=== PATIENT | male | born 1940 | race Caucasian/White ===

== ENCOUNTER 2019-04-18 16:12 | Observation (INO) | payer OTHER, MEDICARE ==
[~2019-04-18] VITALS: Ht 162.6 cm; Wt 65.0 kg
[2019-04-18 16:40] VITALS: BP 95/56
[2019-04-18 18:13] LABS: HEMATOCRIT 33.6 % (39.0-50.0); HEMOGLOBIN 11.3 g/dl (14.0-18.0); IMMATURE GRANULOCYTES 0.3 % (0.0-5.0); MEAN CELL VOLUME 95.5 fL CALC (80.0-100.0); MEAN CORPUSCULAR HGB 32.1 pG CALC (26.0-32.0); MEAN CORPUSCULAR HGB CONC 33.6 g/L CALC (32.0-36.0); NEUT# 5.13 thou/uL (1.82-7.42); RED BLOOD COUNT 3.52 mill/uL (4.70-6.10); RED CELL DISTRI WIDTH 13.7 % (11.5-15.5)
[2019-04-18 18:33] LABS: POTASSIUM 3.4 mmol/l (3.5-5.1)
[2019-04-18 18:36] LABS: CREATININE 2.3 mg/dL (0.7-1.3)
[2019-04-18 19:50] VITALS: BP 129/65
[2019-04-18 20:44] LABS: URINE BILIRUBIN - DIPSTICK NEGATIVE (NEGATIVE); URINE BLOOD DIPSTICK NEGATIVE (NEGATIVE); URINE COLOR YELLOW; URINE GLUCOSE - DIPSTICK NEGATIVE (NEGATIVE); URINE KETONE TRACE mg/dL (NEGATIVE); URINE LEUK ESTERASE NEGATIVE (Negative); URINE NITRITE - DIPSTICK NEGATIVE (Negative); URINE PH 5.5 (4.5-8.0); URINE PROTEIN - DIPSTICK TRACE mg/dL (NEG-TRACE); URINE SPECIFIC GRAVITY 1.025; URINE UROBILINOGEN - DIPSTICK 0.2 E.U./dL (0.2)
[2019-04-18 20:46] LABS: URINE CLARITY CLEAR
[2019-04-18] MEDS ORDERED: IPRATROPIU0.5 MG/3 M IN (21:08)
[2019-04-18] MEDS ORDERED: PROAIR HFA IN (21:10)
[2019-04-18] MEDS ORDERED: ASPIRIN81 MG PO (21:11)
[2019-04-18] MEDS ORDERED: LIPITOR40 M1 PO (21:11)
[2019-04-18] MEDS ORDERED: BUDESONID2 IN (21:13)
[2019-04-18] MEDS ORDERED: FOLIC ACID1 MG PO (21:14)
[2019-04-18] MEDS ORDERED: EQL VITAMIN B500 MCG PO (21:14)
[2019-04-18] MEDS ORDERED: LATANOPROST0.005 % OU (21:16)
[2019-04-18] MEDS ORDERED: LISINOPRIL2.5 MG PO (21:16)
[2019-04-18] MEDS ORDERED: LITHIUM CARB300 MG PO (21:17)
[2019-04-18] MEDS ORDERED: MULTI VIT PO (21:17)
[2019-04-18] MEDS ORDERED: NALTREXONE HCL50 MG PO (21:18)
[2019-04-18] MEDS ORDERED: THIAMINE HCL100 MG PO (21:19)
[2019-04-18] MEDS ORDERED: RISPERIDONE0.5 MG PO ×2 (21:19)
[2019-04-18] MEDS ORDERED: TIMOLOL 0.5%5 ML OU (21:20)
[2019-04-19 01:10] VITALS: BP 101/60
[2019-04-19 04:25] VITALS: BP 107/65
[2019-04-19 05:04] LABS: HEMATOCRIT 31.4 % (39.0-50.0); HEMOGLOBIN 10.7 g/dl (14.0-18.0); IMMATURE GRANULOCYTES 0.2 % (0.0-5.0); MEAN CELL VOLUME 93.7 fL CALC (80.0-100.0); MEAN CORPUSCULAR HGB 31.9 pG CALC (26.0-32.0); MEAN CORPUSCULAR HGB CONC 34.1 g/L CALC (32.0-36.0); NEUT# 3.54 thou/uL (1.82-7.42); RED BLOOD COUNT 3.35 mill/uL (4.70-6.10); RED CELL DISTRI WIDTH 13.4 % (11.5-15.5)
[2019-04-19 05:17] LABS: CREATININE 1.6 mg/dL (0.7-1.3); POTASSIUM 3.1 mmol/l (3.5-5.1)
[2019-04-19 05:18] LABS: ALBUMIN 3.6 g/dL (3.2-5.0); BILIRUBIN, TOTAL 0.5 mg/dL (0.0-1.4); TOTAL PROTEIN 5.9 g/dL (6.3-8.2)
[2019-04-19 07:38] VITALS: BP 136/43
[2019-04-19 10:28] VITALS: BP 118/56
[2019-04-19 15:48] VITALS: BP 102/61
[2019-04-19 18:55] VITALS: BP 121/64
[2019-04-20 00:05] VITALS: BP 129/70
[2019-04-20 04:16] VITALS: BP 142/71
[2019-04-20 07:42] VITALS: BP 132/63
[2019-04-20 09:24] LABS: HEMATOCRIT 32.3 % (39.0-50.0); IMMATURE GRANULOCYTES 0.3 % (0.0-5.0); MEAN CELL VOLUME 95.3 fL CALC (80.0-100.0); MEAN CORPUSCULAR HGB 32.4 pG CALC (26.0-32.0); MEAN CORPUSCULAR HGB CONC 34.1 g/L CALC (32.0-36.0); NEUT# 4.17 thou/uL (1.82-7.42); RED BLOOD COUNT 3.39 mill/uL (4.70-6.10); RED CELL DISTRI WIDTH 13.7 % (11.5-15.5)
[2019-04-20 09:52] LABS: ANION GAP 11 (6-22 (CALC)); BUN 13 mg/dL (8-23); BUN/CREATININE RATIO 13 (12-20 (CALC)); CARBON DIOXIDE 24 mmol/l (22-30); CHLORIDE 112 mmol/l (95-108); GFR > 60 ML/MIN (>=60 (CALC)); GFR FOR AFR.AMER. > 60 ML/MIN (>=60 (CALC)); POTASSIUM 3.7 mmol/l (3.5-5.1); SODIUM 143 mmol/l (137-146)
[2019-04-20 11:18] VITALS: BP 127/66
[2019-04-20 15:24] VITALS: BP 110/55
[2019-04-20 19:23] VITALS: BP 112/61
[2019-04-21 00:18] VITALS: BP 129/74
[2019-04-21 05:32] VITALS: BP 122/69
[2019-04-21 08:42] VITALS: BP 134/67
[2019-04-21 10:56] VITALS: BP 129/64
[2019-04-21 15:20] VITALS: BP 141/69
[2019-04-21 16:44] LABS: C. DIFFICILE TOXIN A&B NEGATIVE (NEGATIVE)
[2019-04-21 19:22] VITALS: BP 132/71
[2019-04-22] VITALS: BP 134/67
[2019-04-22 04:00] VITALS: BP 107/64; BP 130/71
[2019-04-22 06:11] LABS: HEMATOCRIT 34.7 % (39.0-50.0); HEMOGLOBIN 11.7 g/dl (14.0-18.0); IMMATURE GRANULOCYTES 0.3 % (0.0-5.0); MEAN CELL VOLUME 95.1 fL CALC (80.0-100.0); MEAN CORPUSCULAR HGB 32.1 pG CALC (26.0-32.0); MEAN CORPUSCULAR HGB CONC 33.7 g/L CALC (32.0-36.0); RED BLOOD COUNT 3.65 mill/uL (4.70-6.10); RED CELL DISTRI WIDTH 13.6 % (11.5-15.5)
[2019-04-22 06:31] LABS: ANION GAP 12 (6-22 (CALC)); BUN 8 mg/dL (8-23); BUN/CREATININE RATIO 10 (12-20 (CALC)); CARBON DIOXIDE 24 mmol/l (22-30); CHLORIDE 110 mmol/l (95-108); CREATININE 0.9 mg/dL (0.7-1.3); GFR > 60 ML/MIN (>=60 (CALC)); GFR FOR AFR.AMER. > 60 ML/MIN (>=60 (CALC)); POTASSIUM 3.7 mmol/l (3.5-5.1); SODIUM 142 mmol/l (137-146)
[2019-04-22 08:51] VITALS: BP 145/76
[2019-04-22 10:56] VITALS: BP 122/64
[2019-04-22 19:00] VITALS: BP 128/62
[2019-04-23 01:17] VITALS: BP 136/60
[2019-04-23 03:43] VITALS: BP 118/90
[2019-04-23 08:12] VITALS: BP 137/77
[2019-04-23 11:28] VITALS: BP 135/71
[2019-04-23 15:53] VITALS: BP 117/65
[2019-04-23] MEDS ORDERED: LEVAQUIN750 MG PO (17:45)
== END 2019-04-23 18:10 | disposition home or self-care (01) | DRG 641 ==
LOC: MS2 16:12
PROVIDERS: ADMIT Internal Medicine Geriatric Medicine; ATTEND Internal Medicine Geriatric Medicine
DX: E86.0 Dehydration (principal); R63.0 Anorexia; I12.9 Hypertensive chronic kidney disease with stage 1 through stage 4 chronic kidney disease, or unspecified chronic kidney disease; N18.9 Chronic kidney disease, unspecified; J44.9 Chronic obstructive pulmonary disease, unspecified; I25.10 Atherosclerotic heart disease of native coronary artery without angina pectoris; F20.9 Schizophrenia, unspecified; F32.9 Major depressive disorder, single episode, unspecified; F17.200 Nicotine dependence, unspecified, uncomplicated; M19.90 Unspecified osteoarthritis, unspecified site; R19.7 Diarrhea, unspecified; Z95.810 Presence of automatic (implantable) cardiac defibrillator; Z68.24 Body mass index [BMI] 24.0-24.9, adult